=== PATIENT | female | born 1990 | race Caucasian/White ===

== ENCOUNTER 2018-03-16 13:12 | Emergency (ER) | payer MEDICAID ==
[~2018-03-16] VITALS: Ht 162.6 cm; Wt 68.2 kg
[~2018-03-16 13:12] MED LIST: FLUO10CA66 PO; PRED20TA PO
[2018-03-16 13:32] VITALS: BP 138/99
[2018-03-16] MEDS ORDERED: guaiFENesin/DM 10ml UD oral syrup PO ONE (14:05)
[2018-03-16] MEDS ORDERED: ibuprofen 200mg tablet PO ONE (14:05)
[2018-03-16] MEDS ORDERED: BENZ-16 PO (14:15)
[2018-03-16] MEDS ORDERED: GUAI237S46 PO (14:15)
[2018-03-16] MEDS ORDERED: ALBU8HFA PO (14:16)
[2018-03-16] MEDS ORDERED: TAM75C PO (14:27)
== END 2018-03-16 16:11 | disposition home or self-care (01) ==
LOC: ER 13:13
DX: J11.1 Influenza due to unidentified influenza virus with other respiratory manifestations (principal); J45.909 Unspecified asthma, uncomplicated; Z79.899 Other long term (current) drug therapy
CPT/HCPCS: 99283

== ENCOUNTER 2019-05-31 12:37 | Emergency (ER) | payer MEDICAID ==
[~2019-05-31] VITALS: Ht 162.6 cm; Wt 72.7 kg
[2019-05-31 12:58] VITALS: BP 104/64
[2019-05-31] MEDS ORDERED: HYDR-4353 PO (13:21)
[2019-05-31] MEDS ORDERED: ORPH100T2 PO (13:21)
== END 2019-05-31 13:40 | disposition home or self-care (01) ==
LOC: ER 12:39
DX: S16.1XXA Strain of muscle, fascia and tendon at neck level, initial encounter (principal); M54.5 Low back pain; R51 Headache; J45.909 Unspecified asthma, uncomplicated; V49.59XA Passenger injured in collision with other motor vehicles in traffic accident, initial encounter; Y93.89 Activity, other specified; Y92.488 Other paved roadways as the place of occurrence of the external cause; Y99.8 Other external cause status
CPT/HCPCS: 99283

== ENCOUNTER 2021-08-25 11:35 | Emergency (ER) | payer MEDICAID ==
[~2021-08-25] VITALS: Ht 162.6 cm; Wt 81.8 kg
[~2021-08-25 11:35] MED LIST changes: +ORPH100T2 PO
[2021-08-25 12:03] VITALS: BP 110/65
[2021-08-25 12:47] LABS: ALANINE AMINOTRANSFERASE 17 U/L (12-78); ALBUMIN 4.1 G/DL (3.4-5.0); ALBUMIN/GLOBULIN RATIO 1.1 (1.1-1.5); ALKALINE PHOSPHATASE 62 IU/L (46-116); ANION GAP 9 (8-16); ASPARTATE AMINO TRANSFERASE 15 U/L (10-37); BASOPHILS # (AUTO) 0.1 X10'3 (0-0.2); BASOPHILS % (AUTO) 0.8 % (0-1); BILIRUBIN,TOTAL 0.7 MG/DL (0.1-1.0); BLOOD UREA NITROGEN 8 MG/DL (7-18); BUN/CREATININE RATIO 9.3 (6.6-38.0); CALCIUM 9.6 MG/DL (8.5-10.1); CHLORIDE 105 MMOL/L (99-107); CREATININE 0.86 MG/DL (0.40-0.90); EOSINOPHILS # (AUTO) 0.2 X10'3 (0-0.9); EOSINOPHILS % (AUTO) 2.3 % (0-6); GLUCOSE 94 MG/DL (70-104); HEMATOCRIT 36.8 % (35.0-45.0); HEMOGLOBIN 12.5 g/dl (12.0-16.0); LYMPHOCYTES # (AUTO) 1.8 X10'3 (1.1-4.8); LYMPHOCYTES % (AUTO) 23.7 % (21-51); MEAN CORPUSCULAR HEMOGLOBIN 30.8 PG (27.0-31.0); MEAN CORPUSCULAR VOLUME 90.5 FL (78-98); MEAN PLATELET VOLUME 7.1 FL (7.4-10.4); MONOCYTES # (AUTO) 0.5 X10'3 (0-0.9); MONOCYTES % (AUTO) 6.4 % (2-12); NEUTROPHILS % (AUTO) 66.8 % (42-75); PLATELET COUNT 302 X10'3 (140-440); POTASSIUM 3.8 MMOL/L (3.5-5.1); RED BLOOD COUNT 4.06 X10'6 (4.20-5.60); RED CELL DISTRIBUTION WIDTH 13.6 % (11.5-14.5); SODIUM 141 MMOL/L (135-145); TOTAL CARBON DIOXIDE 27.2 MMOL/L (24-32); WHITE BLOOD COUNT 7.5 X10'3 (4.5-11.0); eGFR 78 ML/MIN
[2021-08-25 12:50] LABS: CLARITY,URINE SLIGHTLY CLOUDY (Clear); COLOR,URINE YELLOW (Yellow); GLUCOSE, URINE NEGATIVE (Neg); KETONES,URINE NEGATIVE (Neg); LEUKOCYTE ESTERASE ,URINE NEGATIVE (Neg); NITRITES, URINE NEGATIVE (Neg); OCCULT BLOOD,URINE NEGATIVE (Neg); PH,URINE 6.5 (4.8-8.0); PROTEIN,URINE NEGATIVE (Neg)
[2021-08-25 12:52] LABS: UA COLLECTION TYPE CLN CATCH MIDSTREAM
[2021-08-25 13:14] LABS: MUCUS STRANDS MANY /LPF (Neg); SQUAMOUS EPITHELIAL CELL,UR MANY /LPF (FEW)
[2021-08-25 13:15] LABS: BACTERIA,URINE 2+ /HPF (Neg); RBC,URINE 0-2 /HPF (0-2); WBC,URINE 0-4 /HPF (0-4)
== END 2021-08-25 13:30 | disposition home or self-care (01) ==
LOC: ER 11:37
DX: E86.0 Dehydration (principal); R53.1 Weakness; R42 Dizziness and giddiness; J45.909 Unspecified asthma, uncomplicated; Z79.899 Other long term (current) drug therapy
CPT/HCPCS: 36415; 71045; 80053; 81001; 85025; 99284

== ENCOUNTER 2024-10-10 10:29 | Outpatient (CLI) | payer MEDICAID ==
[~2024-10-10 10:29] MED LIST changes: -ORPH100T2 PO; +ORPH100T4 PO
--- NOTE | 2024-10-10 18:39 | CARDIOLOGY REPORT ---
APPROVED REPORT EXAM: Comprehensive 2D, Doppler, and color-flow Echocardiogram. Patient Location: OUT-PATIENT Blood Pressure: 95/52 mmHg Heart Rate: 65 bpm Rhythm: SINUS Indications HYPOTENSION Floor Hand: NONE Previous echo: NONE 2D Dimensions RVDd 3.6 cm LVOT Diameter 2.04 (1.8-2.4cm) M-Mode Dimensions Left Atrium(MM) 3.35 (2.5-4.0cm) IVSd 0.84 (0.7-1.1cm) LVDd 5.30 (4.0-5.6cm) Aortic Root 2.31 (2.2-3.7cm) PWd 0.95 (0.7-1.1cm) IVSs 1.27 cm MV EPSS 0.1 (<0.5cm) LVDs 2.89 (2.0-3.8cm) FS (%) 45 % PWs 1.27 cm ESV(Teich) 32.0 ml LVEF(%) 76 (>50%) Aortic Valve AoV Peak Jamarcus. 147.4 cm/s AoV VTI 36.7 cm AO Peak GR. 10.6 mmHg AO Mean GR. 5 mmHg LVOT VTI 34.67 cm LVOT Peak Jamarcus. 154.1 cm/s SEE (VMAX) 3.43 cm2 SEE (VTI) 3.10 cm2 Mitral Valve MV E Velocity 135.1 cm/s MV DECEL TIME 187 ms MV A Velocity 63.8 cm/s MV PHT 66 ms E/A Ratio 2.1 MVA (PHT) 3.33 cm2 TDI E/Medial E' 9.1 Tricuspid Valve TR P. Velocity 251 cm/s RAP ESTIMATE 10 mmHg TR Peak Gr. 25 mmHg RVSP 35 mmHg Pulmonary Vein S2 Velocity 56.84 cm/s PVa [id number] msec LEFT VENTRICLE Normal LV size and wall thickness. Overall systolic function is normal. Overall LVEF is 65-70%. RIGHT VENTRICLE RV is normal size and function. Estimated PA systolic pressure of 35 mm of mercury ATRIA The left atrium size is normal. Bowed interatrial septum - no flow detected. . AORTIC VALVE Trileaflet AV appears normal without stenosis or insufficiency. MITRAL VALVE Normal MV annulus calcification without stenosis. Trace regurgitation. TRICUSPID VALVE TV appears structurally normal with mild regurgitation. PULMONIC VALVE Normal PV without stenosis, physiologic insufficiency. GREAT VESSELS Aortic root is normal in size. Ascending aorta is normal in caliber. PERICARDIUM Normal pericardium. No effusion. Other Information Study Quality: Adequate Conclusion Overall LVEF is 65-70%. Normal LV size and wall thickness. Overall systolic function is normal. RV is normal size and function. Estimated PA systolic pressure of 35 mm of mercury The left atrium size is normal. Bowed interatrial septum - no flow detected. Trileaflet AV appears normal without stenosis or insufficiency. Normal MV annulus calcification without stenosis. Trace regurgitation. TV appears structurally normal with mild regurgitation. Normal PV without stenosis, physiologic insufficiency. Normal pericardium. No effusion.
== END 2024-10-10 23:59 | disposition home or self-care (01) ==
LOC: CARD DIAG 10:29
PROVIDERS: ATTEND Family Medicine
DX: I08.8 Other rheumatic multiple valve diseases (principal); I95.1 Orthostatic hypotension
CPT/HCPCS: 93306